=== PATIENT | female | born 1980 | race Caucasian/White ===

== ENCOUNTER 2023-06-17 20:17 | Emergency (ER) | payer SELFPAY ==
[2023-06-17] MEDS ORDERED: Lidocaine 1% (PF) 30 ML VIAL ONE (20:26)
[2023-06-17] MEDS ORDERED: Bacitracin 1 PK ONE (20:57)
== END 2023-06-17 21:12 | disposition home or self-care (01) ==
LOC: NAV ERS 20:17
DX: S61.411A Laceration without foreign body of right hand, initial encounter (principal); F17.290 Nicotine dependence, other tobacco product, uncomplicated; W61.32XA Struck by chicken, initial encounter
CPT/HCPCS: 12004; J2001

== ENCOUNTER 2024-11-11 15:57 | Emergency (ER) | payer OTHER, SELFPAY ==
[2024-11-11] MEDS ORDERED: Boostrix 0.5 ML (Tdap) VIAL (>/=7 yrs of age) ONE (16:59)
[2024-11-11] MEDS ORDERED: Lidocaine 1% w/Epinephrine 1:100K 20 ML VIAL ONE (16:59)
== END 2024-11-11 18:16 | disposition home or self-care (01) ==
LOC: NAV ERS 15:57
DX: S01.81XA Laceration without foreign body of other part of head, initial encounter (principal); S40.012A Contusion of left shoulder, initial encounter; F17.290 Nicotine dependence, other tobacco product, uncomplicated; Z23 Encounter for immunization; W18.2XXA Fall in (into) shower or empty bathtub, initial encounter; Y93.E1 Activity, personal bathing and showering
CPT/HCPCS: 12011; 90715; 99282